=== PATIENT | female | born 1960 | race Caucasian/White ===

== ENCOUNTER 2017-10-08 11:43 | Day surgery (SDC) | payer OTHER ==
[2017-10-08] MEDS ORDERED: LIDOCAINE 2% (SDV) 5 ML INJ (14:51)
[2017-10-08] MEDS ORDERED: PROPOFOL 40 ML (14:51)
== END 2017-10-08 16:25 | disposition home or self-care (01) ==
LOC: GIL 11:43
DX: Z12.11 Encounter for screening for malignant neoplasm of colon (principal); K63.89 Other specified diseases of intestine
CPT/HCPCS: 45378